=== PATIENT | male | born 1990 | race Two or more races ===

== ENCOUNTER 2017-02-11 14:57 | Emergency (ER) | payer BC ==
[2017-02-11] MEDS ORDERED: NS 1000 ML 1,000 ML IV ONE (15:01)
[2017-02-11] MEDS ORDERED: NS 1000 ML 1,000 ML ONE (15:02)
--- NOTE | 2017-02-11 15:03 | DR.CP ---
HPI - Time Seen Time seen: 15:00 - Complaint Chief Complaint Doctor Comments: Patient was outside raking the yars and became hot and felt dizzy with tingling of the arms. He denies a history of cardiac disease. He is presently taking amoxicillin for a diagnosis of sinusitis. PMH - PMH Past Surgical History: No - Family History Family Medical History: Diabetes Mellitus, Hypertension - Social History Do you use any recreational Drugs:: No ROS - Review of Systems Eyes: No Symptoms Reported ENTM: No Symptoms Reported Respiratoy: No Symptoms Reported Cardiovascular: No Symptoms Reported Gastrointestinal/Abdominal: No Symptoms Reported Genitourinary: No Symptoms Reported Neurological: No Symptoms Reported Musculoskeletal: Arm (tingling) Integumentary: No Symptoms Reported Hematologic/Lymphatic: No Symptoms Reported Endocrine: No Symptoms Reported Psychiatric: No Symptoms Reported All Other Systems: Reviewed and Negative PE - Vitals Vitals: Temperature 98.5 F Pulse Rate [Right Brachial] 100 Pulse Rate 76 Respiratory Rate 20 Blood Pressure [Right Arm] 131/61 Blood Pressure 135/76 O2 Sat by Pulse Oximetry 98 - General Limitations: No Limitations General Appearance: Alert, In No Apparent Distress - Head Head Exam: Normal Inspection, Atraumatic - Eyes Eye exam: Normal Appearance, PERRL, EOMI - ENT ENT Exam: Normal Exam - Chest Chest Inspection: Normal Inspection - Respiratory Respiratory Exam: Normal Lung Sounds Bilat Respiratory Exam: Bilateral Clear to Auscultation - Cardiovascular Cardiovascular Exam: Regular Rate, Normal Rhythm Pulse: Normal, Radial Edema: negative: Normal, 1, 2, 3, 4, Plus, Right, Left, Bilateral, Upper, Lower , Extremity - Abdominal Exam Abdominal Exam: Normal Inspection Abdominal Tenderness: negative: RUQ, RLQ, LUQ, LLQ, Epigastrium, Suprapubic, Diffuse, Mild, Moderate, Severe, Other - Extremities Extremities Exam: Normal Inspection, Full ROM - Back Back Exam: Normal Inspection, Full ROM - Neurologic Neurological Exam: Alert, Oriented X3, CN II-XII Intact - Psychiatric Psychiatric Exam: Normal Affect, Normal Mood - Skin Skin Exam: Warm, Dry, Intact ROR - Labs Reviewed Laboratory Results Reviewed?: Yes (cardiacs negative) Result Diagrams: 02/11/17 15:25 02/11/17 15:25 Laboratory: WBC 9.2 X10^3/uL (3.6-10.0) 02/11/17 15:25 RBC 4.97 X10^6/uL (4.7-6.0) 02/11/17 15:25 Hgb 15.3 g/dL (13.5-18.0) 02/11/17 15:25 Hct 44.0 % (42.0-54.0) 02/11/17 15:25 MCV 88.4 fL (80.0-100.0) 02/11/17 15:25 MCH 30.8 pg (27.0-34.0) 02/11/17 15:25 MCHC 34.8 g/dL (33.0-35.0) 02/11/17 15:25 RDW 13.3 % (11.6-16.5) 02/11/17 15:25 Plt Count 204 X10^3/uL (150.0-450.0) 02/11/17 15:25 MPV 9.6 fL (7.4-11.0) 02/11/17 15:25 Neut % 65.8 % (42.0-75.0) 02/11/17 15:25 Lymph % 23.1 % (21.0-51.0) 02/11/17 15:25 [place] % 9.7 % (0.0-13.0) 02/11/17 15:25 Eos % 0.7 % (0.9-2.9) L 02/11/17 15:25 Baso % 0.7 % (0.2-1.0) 02/11/17 15:25 Neut # 6.1 x10^3/uL (2.2-4.8) H 02/11/17 15:25 Lymph # 2.1 X10^3/uL (1.3-2.9) 02/11/17 15:25 [place] # 0.9 x10^3/uL (0.3-0.8) H 02/11/17 15:25 Eos # 0.1 x10^3/uL (0.0-0.2) 02/11/17 15:25 Baso # 0.1 X10^3/uL (0.0-0.1) 02/11/17 15:25 Absolute Nucleated RBC 0.0 /100WBC 02/11/17 15:25 Sodium 143 mmol/L (136-145) 02/11/17 15:25 Corrected Sodium 144 mmol/L (136-145) 02/11/17 15:25 Potassium 3.7 mmol/L (3.5-5.1) 02/11/17 15:25 Chloride 106 mmol/L (98-107) 02/11/17 15:25 Carbon Dioxide 25.5 mmol/L (21-32) 02/11/17 15:25 BUN 17 mg/dL (7-18) 02/11/17 15:25 Creatinine 1.04 mg/dL (0.70-1.30) 02/11/17 15:25 Est GFR (MDRD) Af Amer > 60 (>60) 02/11/17 15:25 Est GFR (MDRD) Non-Af > 60 (>60) 02/11/17 15:25 Glucose 130 mg/dL (65-99) H 02/11/17 15:25 Calcium 8.6 mg/dL (8.5-10.1) 02/11/17 15:25 Corrected Calcium TNP 02/11/17 15:25 Total Bilirubin 0.30 mg/dL (0.2-1.0) 02/11/17 15:25 AST 65 Units/L (15-37) H 02/11/17 15:25 ALT 162 Units/L (12-78) H 02/11/17 15:25 Alkaline Phosphatase 99 Units/L (46-116) 02/11/17 15:25 Creatine Kinase 95 Units/L (39-308) 02/11/17 15:25 CK-MB (CK-2) < 1.0 ng/mL (0-4.0) 02/11/17 15:25 CK/CKMB % Calc 1.1 % (<4) 02/11/17 15:25 Troponin I < 0.02 ng/mL (0-1.5) 02/11/17 15:25 Total Protein 7.1 g/dL (6.4-8.2) 02/11/17 15:25 Albumin 3.8 g/dL (3.4-5.0) 02/11/17 15:25 Globulin 3.3 g/dL (2.5-4.5) 02/11/17 15:25 Albumin/Globulin Ratio 1.2 Ratio (1.1-2.1) 02/11/17 15:25 - XRAY XRAY Interpreted by: Radiologist (No cardiopulmonary abnormality) - EKG Rhythm: NSR Block: RBBB (incomplete) - Diagnosis Discharge Problem: Exertional chest pain - Discharge Plan Condition: Stable - Follow ups/Referrals Follow ups/Referrals: EFRAIN MCQUEEN V [Primary Care Provider] - 3 days - Instructions
[2017-02-11 15:06] VITALS: BMI 31.9
[2017-02-11 15:24] LABS: BASOPHILS # (AUTO) 0.1 X10^3/uL (0.0-0.1); BASOPHILS % (AUTO) 0.7 % (0.2-1.0); EOSINOPHILS # (AUTO) 0.1 x10^3/uL (0.0-0.2); EOSINOPHILS % (AUTO) 0.7 % (0.9-2.9); HEMOGLOBIN 15.3 g/dL (13.5-18.0); LYMPHOCYTES # (AUTO) 2.1 X10^3/uL (1.3-2.9); LYMPHOCYTES % (AUTO) 23.1 % (21.0-51.0); MEAN CORPUSCULAR HEMOGLOBIN 30.8 pg (27.0-34.0); MEAN CORPUSCULAR HGB CONC 34.8 g/dL (33.0-35.0); MEAN CORPUSCULAR VOLUME 88.4 fL (80.0-100.0); MEAN PLATELET VOLUME 9.6 fL (7.4-11.0); MONOCYTES # (AUTO) 0.9 x10^3/uL (0.3-0.8); MONOCYTES % (AUTO) 9.7 % (0.0-13.0); NEUTROPHILS # (AUTO) 6.1 x10^3/uL (2.2-4.8); NEUTROPHILS % (AUTO) 65.8 % (42.0-75.0); PLATELET COUNT 204 X10^3/uL (150.0-450.0); RED BLOOD COUNT 4.97 X10^6/uL (4.7-6.0); RED CELL DISTRIBUTION WIDTH 13.3 % (11.6-16.5); WHITE BLOOD COUNT 9.2 X10^3/uL (3.6-10.0)
[2017-02-11] MEDS ORDERED: ZOFRAN INJ 4 MG VIAL IVP ONE (15:24)
[2017-02-11] MEDS ORDERED: ZOFRAN INJ 4 MG VIAL ONE (15:26)
--- NOTE | 2017-02-11 15:32 | RAD ---
HISTORY: Chest pain Study: Single view of the chest. Comparison: None. Findings: The cardiomediastinal silhouette is normal. No focal consolidations, pleural effusions or pneumothor ax. Osseous structures demonstrate no acute abnormality. IMPRESSION: 1. No acute cardiopulmonary process. Reported By:
[2017-02-11 15:37] LABS: ALANINE AMINOTRANSFERASE 162 Units/L (12-78); ALBUMIN 3.8 g/dL (3.4-5.0); ALKALINE PHOSPHATASE 99 Units/L (46-116); ASPARTATE AMINO TRANSFERASE 65 Units/L (15-37); BLOOD UREA NITROGEN 17 mg/dL (7-18); CALCIUM 8.6 mg/dL (8.5-10.1); CARBON DIOXIDE 25.5 mmol/L (21-32); CHLORIDE 106 mmol/L (98-107); COR NA(FOR HYPERGLY) 144 mmol/L (136-145); CREATININE 1.04 mg/dL (0.70-1.30); GLUCOSE 130 mg/dL (65-99); TOTAL PROTEIN 7.1 g/dL (6.4-8.2); eGFR BLACK RACES > 60 (>60); eGFR NON BLACK RACES > 60 (>60)
[2017-02-11 15:38] LABS: SODIUM 143 mmol/L (136-145)
[2017-02-11 15:43] VITALS: BP 131/61
[2017-02-11 15:45] LABS: CKMB % 1.1 % (<4); CREATINE KINASE 95 Units/L (39-308); CREATINE KINASE MB < 1.0 ng/mL (0-4.0); TROPONIN I < 0.02 ng/mL (0-1.5)
== END 2017-02-11 16:52 | disposition home or self-care (01) ==
LOC: ER 15:01
DX: R07.89 Other chest pain (principal)
CPT/HCPCS: 36415; 71010; 80053; 82550; 82553; 84484; 85025; 93005; 93010; 96365; 96374; 99283; J2405

== ENCOUNTER 2017-02-27 16:10 | Emergency (ER) | payer BC ==
[2017-02-27 16:12] VITALS: BP 143/85; BMI 31.1
--- NOTE | 2017-02-27 16:59 | DR.GENAD ---
HPI - PCP Primary Care Physician: EFRAIN - Complaint/Symptoms Chief Complaint:: PATIENT STATED THAT HE IS FEELING CRAMPS IN HANDS AND ARMS ABOUT ONE HOUR AGO. - Nurses notes reviewed Nurses Notes Review: Yes - Source History Provided: Patient - Mode of Arrival Mode of Arrival: Ambulatory - Timing Onset of Chief Complaint: 02/27/17 PMH - PMH Past Medical History: No Past Surgical History: No - Family History History of Family Medical Conditions: Yes Family Medical History: Diabetes Mellitus, Hypertension - Social History Does patient currently use any type of tobacco product: No Have you used tobacco products in the last 12 months: No Type of Tobacco Use: None Does any household member use tobacco: No Alcohol Use: None Do you use any recreational Drugs:: No Lives With: Family Lives Where: Home - infectious screening In the last 2 months have you had wt loss of >10#?: NO Have you had fever, night sweats or hemotysis?: No Have you traveled outside the country in the last 6 months?: No Isolation: Standard PE - Vital Signs Vitals: Temperature 98.6 F Pulse Rate 80 Respiratory Rate 20 Blood Pressure [Right Arm] 131/61 Blood Pressure 143/85 O2 Sat by Pulse Oximetry 99 ROR - Labs Reviewed Result Diagrams: 02/27/17 17:05 02/27/17 17:05 Laboratory: WBC 7.6 X10^3/uL (3.6-10.0) 02/27/17 17:05 RBC 4.96 X10^6/uL (4.7-6.0) 02/27/17 17:05 Hgb 15.0 g/dL (13.5-18.0) 02/27/17 17:05 Hct 43.5 % (42.0-54.0) 02/27/17 17:05 MCV 87.9 fL (80.0-100.0) 02/27/17 17:05 MCH 30.3 pg (27.0-34.0) 02/27/17 17:05 MCHC 34.5 g/dL (33.0-35.0) 02/27/17 17:05 RDW 13.4 % (11.6-16.5) 02/27/17 17:05 Plt Count 201 X10^3/uL (150.0-450.0) 02/27/17 17:05 MPV 9.9 fL (7.4-11.0) 02/27/17 17:05 Neut % 57.1 % (42.0-75.0) 02/27/17 17:05 Lymph % 30.4 % (21.0-51.0) 02/27/17 17:05 [place] % 9.8 % (0.0-13.0) 02/27/17 17:05 Eos % 1.9 % (0.9-2.9) 02/27/17 17:05 Baso % 0.8 % (0.2-1.0) 02/27/17 17:05 Neut # 4.3 x10^3/uL (2.2-4.8) 02/27/17 17:05 Lymph # 2.3 X10^3/uL (1.3-2.9) 02/27/17 17:05 [place] # 0.7 x10^3/uL (0.3-0.8) 02/27/17 17:05 Eos # 0.1 x10^3/uL (0.0-0.2) 02/27/17 17:05 Baso # 0.1 X10^3/uL (0.0-0.1) 02/27/17 17:05 Absolute Nucleated RBC 0.1 /100WBC 02/27/17 17:05 Sodium 143 mmol/L (136-145) 02/27/17 17:05 Corrected Sodium TNP 02/27/17 17:05 Potassium 4.0 mmol/L (3.5-5.1) 02/27/17 17:05 Chloride 106 mmol/L (98-107) 02/27/17 17:05 Carbon Dioxide 28.3 mmol/L (21-32) 02/27/17 17:05 BUN 15 mg/dL (7-18) 02/27/17 17:05 Creatinine 1.01 mg/dL (0.70-1.30) 02/27/17 17:05 Est GFR (MDRD) Af Amer > 60 (>60) 02/27/17 17:05 Est GFR (MDRD) Non-Af > 60 (>60) 02/27/17 17:05 Glucose 109 mg/dL (65-99) H 02/27/17 17:05 Calcium 8.8 mg/dL (8.5-10.1) 02/27/17 17:05 Corrected Calcium TNP 02/27/17 17:05 Total Bilirubin 0.30 mg/dL (0.2-1.0) 02/27/17 17:05 AST 39 Units/L (15-37) H 02/27/17 17:05 ALT 117 Units/L (12-78) H 02/27/17 17:05 Alkaline Phosphatase 81 Units/L (46-116) 02/27/17 17:05 Total Protein 7.5 g/dL (6.4-8.2) 02/27/17 17:05 Albumin 4.1 g/dL (3.4-5.0) 02/27/17 17:05 Globulin 3.4 g/dL (2.5-4.5) 02/27/17 17:05 Albumin/Globulin Ratio 1.2 Ratio (1.1-2.1) 02/27/17 17:05 - Discharge Plan Condition: Stable - Follow ups/Referrals Follow ups/Referrals: MDMisc [Primary Care Provider] - 2 days - Instructions Instructions: Muscle Cramps and Spasms, [id number] Additional Instructions: RETURN TO ED IF WORSE.
[2017-02-27 17:18] LABS: BASOPHILS # (AUTO) 0.1 X10^3/uL (0.0-0.1); BASOPHILS % (AUTO) 0.8 % (0.2-1.0); EOSINOPHILS # (AUTO) 0.1 x10^3/uL (0.0-0.2); EOSINOPHILS % (AUTO) 1.9 % (0.9-2.9); HEMATOCRIT 43.5 % (42.0-54.0); LYMPHOCYTES # (AUTO) 2.3 X10^3/uL (1.3-2.9); LYMPHOCYTES % (AUTO) 30.4 % (21.0-51.0); MEAN CORPUSCULAR HEMOGLOBIN 30.3 pg (27.0-34.0); MEAN CORPUSCULAR HGB CONC 34.5 g/dL (33.0-35.0); MEAN CORPUSCULAR VOLUME 87.9 fL (80.0-100.0); MEAN PLATELET VOLUME 9.9 fL (7.4-11.0); MONOCYTES # (AUTO) 0.7 x10^3/uL (0.3-0.8); MONOCYTES % (AUTO) 9.8 % (0.0-13.0); NEUTROPHILS # (AUTO) 4.3 x10^3/uL (2.2-4.8); NEUTROPHILS % (AUTO) 57.1 % (42.0-75.0); PLATELET COUNT 201 X10^3/uL (150.0-450.0); RED BLOOD COUNT 4.96 X10^6/uL (4.7-6.0); RED CELL DISTRIBUTION WIDTH 13.4 % (11.6-16.5); WHITE BLOOD COUNT 7.6 X10^3/uL (3.6-10.0)
[2017-02-27 17:30] LABS: ALANINE AMINOTRANSFERASE 117 Units/L (12-78); ALBUMIN 4.1 g/dL (3.4-5.0); ALKALINE PHOSPHATASE 81 Units/L (46-116); ASPARTATE AMINO TRANSFERASE 39 Units/L (15-37); BLOOD UREA NITROGEN 15 mg/dL (7-18); CALCIUM 8.8 mg/dL (8.5-10.1); CARBON DIOXIDE 28.3 mmol/L (21-32); CHLORIDE 106 mmol/L (98-107); CREATININE 1.01 mg/dL (0.70-1.30); GLUCOSE 109 mg/dL (65-99); SODIUM 143 mmol/L (136-145); TOTAL PROTEIN 7.5 g/dL (6.4-8.2); eGFR BLACK RACES > 60 (>60); eGFR NON BLACK RACES > 60 (>60)
== END 2017-02-27 17:52 | disposition home or self-care (01) ==
LOC: ER 16:16
DX: R25.2 Cramp and spasm (principal)
CPT/HCPCS: 36415; 80053; 85025; 99282

== ENCOUNTER → 2017-04-04 | Outpatient (CLI) | payer BC ==
--- NOTE | 2017-04-04 17:49 | RAD ---
HISTORY: Neck pain. Study: Five views of the cervical spine. Comparison: None. Findings: Slight reversal of the normal cervical lordosis, which may represent positioning versus muscle spasm . No obvious fracture or listhesis. The vertebral body heights and disc spaces are otherwise maintai ilir. Mild uncovertebral hypertrophy. The dens is intact. The prevertebral soft tissues and lung apic es appear normal. No significant neural foraminal narrowing on oblique imaging. IMPRESSION: Nonspecific reversal of the normal cervical lordosis. Otherwise, unremarkable exam. Reported By:
== END ==
LOC: RAD 16:55
PROVIDERS: ATTEND Internal Medicine
DX: M54.2 Cervicalgia (principal)
CPT/HCPCS: 72050